=== PATIENT | male | born 2000 | race Caucasian/White ===

== ENCOUNTER 2018-11-25 12:22 | Emergency (ER) | payer MEDICAID ==
[2018-11-25] MEDS ORDERED: NS 1,000 ML IV ONE (13:21)
[2018-11-25] MEDS ORDERED: ONDANSETRON 4 MG/2 ML VIAL IVP ONE (13:21)
== END 2018-11-25 16:09 | disposition home or self-care (01) ==
DX: R11.2 Nausea with vomiting, unspecified (principal); R19.7 Diarrhea, unspecified; E86.9 Volume depletion, unspecified

== ENCOUNTER 2019-01-29 22:41 | Emergency (ER) | payer MEDICAID | END 2019-01-30 07:20 | disposition home or self-care (01) ==